=== PATIENT | male | born 1970 | race Caucasian/White ===

== ENCOUNTER 2016-11-26 18:22 | Emergency (ER) | payer SELFPAY ==
[2016-11-26] MEDS ORDERED: SODIUM BICARBONATE 8.4% INJ 50 MEQ/50 ML SYR IV ONE (18:23)
[2016-11-26] MEDS ORDERED: EPINEPHrine HCL (1:10,000) 1 MG/10 ML SYRINGE IV ONE (18:23)
--- NOTE | 2016-11-26 19:03 | PD ---
HPI Chief Complaint: S/P ARREST Time Seen by Provider: 19:02 Travel History International Travel<30 days: No Contact w/Intl Traveler<30days: No Traveled to known affect area: No History of Present Illness HPI NO HX, EMS FOUND IN [place], PLACED IV GAVE NARCAN, EPI, BVM WITH OBTURATOR BUT ALWAYS IN [place] FAMILY GAVE H/O HEAVY DRINKING VODKA RASPBERRY DAILY PFSH Social History Alcohol Use: Yes Tobacco Use: Yes Review of Systems ROS Limitations: Clinical Condition Except as stated in HPI: all other systems reviewed are Neg Physical Exam Exam Limitations: Clinical Condition Narrative GENERAL: SKIN: COLD, PALE HEAD: Atraumatic. PUPILS FIXED AND DILATED, NO CORNEAL REFLEX ENT: No nasal bleeding or discharge. ETOH SMELL NECK: Trachea midline. No JVD. CARDIOVASCULAR: PULSELESS RESPIRATORY: APNEIC, ARRIVED WITH OBTURATOR GASTROINTESTINAL: Abdomen OBESE, SOFT, NO GUARDING/RIGIDITY MUSCULOSKELETAL: Extremities SHOWED cyanosis, No obvious deformities NEUROLOGICAL: GCS 3T, MDM Medical Decision Making Medical Screen Exam Complete: Yes Emergency Medical Condition: Yes Medical Record Reviewed: Yes Differential Diagnosis FULL ARREST --HYPOGLYCEMIA, HYPERKALEMIA, PERICARDIAL EFFUSIOIN, Narrative Course CODE CALLED AT 1844 Critical Care Narrative CRITICAL CARE NOTE: With evaluation of the patient, labs, EKG, receipt of radiologic studies, administration of medications, reevaluation the patient and discussion of the patient with the admitting physicians, the total critical care time was [30] minutes. Time to perform other separately billable procedures was not included in the critical care time. Procedures Procedure Narrative The patient was put in optimal position for the procedure. NO Rapid sequence intubation NEEDED, ATTEMPTED 7.5 AND 8.0 ETT HOWEVER UNABLE TO INTUBATE WITH EITHER MAC 4 NOR WITH VIDEO LARYNGOSCOPE, MOSTLY DUE TO EPIGLOTTIS FLOPPY AND BLOCKING OVER VOCAL CORDS, UNABLE TO USE BOUGIE IT WAS NOT READILY AVAILABLE , DECISION MADE TO USE BVM AND ACLS PROTOCOLS HOWEVER PATIENT CONTINUED ON ASYSTOLE AND ON BEDSIDE ULTRASOUND NO CARDIAC ACITVITY AND NO PERICARDIAL EFFUSION NOTED EITHER. CODE CALLED ONCE ALL APPROACHES FAILED Diagnosis Primary Impression: S/P FULL ARREST W/O ROSC Condition: Sinan Stevenson MD Nov 26, 2016 19:03
== END 2016-11-26 22:11 | disposition expired ==
LOC: NEPC 18:22 → NEPI 22:11
DX: I46.9 Cardiac arrest, cause unspecified (principal)
CPT/HCPCS: 31500; 92950; 99291; J0171